=== PATIENT | female | born 1990 | race Caucasian/White ===

== ENCOUNTER 2017-06-10 09:26 | Inpatient (IN) | payer BC ==
[~2017-06-10] VITALS: Ht 149.9 cm; Wt 66.6 kg
[2017-06-10] VITALS (9 sets, daily range): BP systolic 112–132; BP diastolic 59–84
[2017-06-10] MEDS ORDERED: RIZATRIPTAN5 MG PO (10:02)
[2017-06-10] MEDS ORDERED: LEXAPRO10 MG PO (10:02)
[2017-06-10] MEDS ORDERED: PRENATAL TABLE1 EACH PO (10:03)
[2017-06-10] MEDS ORDERED: COLACE100 MG PO (10:03)
[2017-06-10 11:18] LABS: BASOPHIL (%) 0.3 % (0-1); BASOPHIL COUNT 0.1 K/uL (0-0.1); EOSINOPHIL (%) 0.4 % (0-5); EOSINOPHIL COUNT 0.1 K/uL (0-0.3); HEMATOCRIT 38.1 % (36.0-46.0); HEMOGLOBIN 13.4 G/DL (11.9-15.5); IMMATURE GRANULOCYTE (%) 0.7 % (0.0-0.7); LYMPHOCYTE (%) 16.9 % (15-42); LYMPHOCYTE COUNT 2.9 K/uL (1.0-2.8); MCH 32.3 PG (29.0-34.0); MCHC 35.2 G/DL (30.0-36.0); MCV 91.8 FL (83-99); MONOCYTE (%) 6.2 % (3-12); MONOCYTE COUNT 1.1 K/uL (0-0.8); NEUTROPHIL (%) 75.5 % (45-76); NEUTROPHIL COUNT 13.1 K/uL (1.8-6.4); PLATELET COUNT 268 K/uL (156-360); RBC DIS.WIDTH-CV 12.4 % (11.8-14.6); RBC DIS.WIDTH-SD 41.1 % (39-53); RED BLOOD COUNT 4.15 M/uL (3.80-5.20); WHITE BLOOD COUNT 17.3 K/uL (4.1-10.2)
[2017-06-10 11:22] LABS: AMPHETAMINE NEGATIVE (500 ng/mL); BARBITURATES NEGATIVE (200 ng/mL); BENZODIAZEPINES NEGATIVE (150 ng/mL); BUPRENORPHINE NEGATIVE (10 ng/mL); COCAINE NEGATIVE (150 ng/mL); METHADONE NEGATIVE (200 ng/mL); METHAMPHETAMINE NEGATIVE (500 ng/mL); OPIATES (MORPHINE) NEGATIVE (100 ng/mL); OXYCODONE NEGATIVE (100 ng/mL); PHENCYCLIDINE NEGATIVE (25 ng/mL); PROPOXYPHENE NEGATIVE (300 ng/mL); THC CANNABINOIDS NEGATIVE (50 ng/mL); TRICYCLIC ANTIDEPRESSANTS NEGATIVE (300 ng/mL)
[2017-06-10] MEDS ORDERED: IBUPROFEN800 MG PO (14:22)
[2017-06-11 22:48] VITALS: BP 110/59
== END 2017-06-12 14:46 | disposition home or self-care (01) | DRG 775 ==
LOC: LDRP-OP 09:26 → 2WEST 09:27 → LDRP-OP 07-22 09:44
PROVIDERS: Midwife
PROC: 10E0XZZ Delivery of Products of Conception, External Approach (ICD-10-PCS; principal; 2017-06-10)
DX: O80 Encounter for full-term uncomplicated delivery (principal); Z37.0 Single live birth; Z3A.38 38 weeks gestation of pregnancy
CPT/HCPCS: 85025; C1755; J0595; J7120